=== PATIENT | male | born 1945 | race Caucasian/White ===

== ENCOUNTER 2016-09-15 09:39 | Day surgery (SDC) | payer MEDICARE, BC ==
[~2016-09-15 09:39] MED LIST: PROPOFOL 10 MG/ML EMU IV ONE; PROPOFOL 500 MG/50 ML EMU IV ONE
[2016-09-15 11:24] VITALS: RESP 20; TEMP 97
[2016-09-15 11:54] VITALS: BP 178/61; PULSE 49; O2SAT 99
== END 2016-09-15 12:15 | disposition home or self-care (01) | DRG 951 ==
LOC: SURG 09:39
PROVIDERS: ATTEND Surgery
DX: Z12.11 Encounter for screening for malignant neoplasm of colon (principal); D50.0 Iron deficiency anemia secondary to blood loss (chronic); D12.3 Benign neoplasm of transverse colon; Z86.010 Personal history of colon polyps
CPT/HCPCS: 99001; J2001; J2704